=== PATIENT | male | born 1990 | race Two or more races ===

== ENCOUNTER 2018-06-09 21:25 | Emergency (ER) | payer OTHER ==
[2018-06-09] MEDS ORDERED: Diphtheria,Pertussis(Acell),Tetanus Vaccine 0.5 ML Syringe IM ONE (21:39)
--- NOTE | 2018-06-09 21:40 | EDM.PDOC ---
<Jacob Antoine - Last Filed: 06/09/18 22:03> ED HPI GENERAL MEDICAL PROBLEM - General Chief Complaint: Upper Extremity Injury/Pain Stated Complaint: PT HURT RT INDEX FINGER Time Seen by Provider: 06/09/18 21:37 Source of Information: Reports: Patient History Limitations: Reports: No Limitations - History of Present Illness INITIAL COMMENTS - FREE TEXT/NARRATIVE: HISTORY AND PHYSICAL: History of present illness: Patient is a 27-year-old male here with complaint of right pointer finger injury. 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 He is uncertain of his last tetanus. Review of systems: As per history of present illness and below otherwise all systems reviewed and negative. Past medical history: As per history of present illness and as reviewed below otherwise noncontributory. Surgical history: As per history of present illness and as reviewed below otherwise noncontributory. Social history: No reported history of drug or alcohol abuse. Family history: As per history of present illness and as reviewed below otherwise noncontributory. Physical exam: General: Patient sitting comfortably in no acute distress and nontoxic appearing HEENT: Atraumatic, normocephalic, pupils reactive, negative for conjunctival pallor or scleral icterus, mucous membranes moist, throat clear, neck supple, nontender, trachea midline. No meningeal signs. Lungs: Clear to auscultation, breath sounds equal bilaterally, chest nontender. Heart: S1S2, regular, negative for clicks, rubs, or overt murmur. Abdomen: Soft, nondistended, nontender. Negative for masses or hepatosplenomegaly. Negative for costovertebral tenderness. Pelvis: Stable nontender. Genitourinary: Deferred. Rectal: Deferred. Extremities: There is a 1.5cm laceration to the dorsal aspect of the right pointer finger just lateral to the DIP. negative for cords or calf pain. Neurovascular unremarkable. Neuro: Awake, alert, oriented. Cranial nerves II through XII unremarkable. Cerebellum unremarkable. Motor and sensory unremarkable throughout. Exam nonfocal. Notes: Diagnostics: x-ray right finger Therapeutics: tdap laceration repair Prescriptions: Impression: Right finger injury Laceration Plan: 1. Follow up with primary care provider 2. Return to ED as needed as discussed Definitive disposition and diagnosis as appropriate pending reevaluation and review of above. Right Finger-Index Pain Score (Numeric/FACES): 10 - Related Data Allergies Allergy/AdvReac Type Severity Reaction Status Date / Time No Known Allergies Allergy Verified 06/09/18 21:32 Home Meds: Home Meds . [No Known Home Meds] 06/09/18 [History] Past Medical History - Past Health History Medical/Surgical History: Denies Medical/Surgical History HEENT History: Reports: None Cardiovascular History: Reports: None Respiratory History: Reports: None Gastrointestinal History: Reports: None Genitourinary History: Reports: None Musculoskeletal History: Reports: None Neurological History: Reports: None Psychiatric History: Reports: None Endocrine/Metabolic History: Reports: None Hematologic History: Reports: None Oncologic (Cancer) History: Reports: None Dermatologic History: Reports: None - Infectious Disease History Infectious Disease History: Reports: None - Past Surgical History Head Surgeries/Procedures: Reports: None Male Surgical History: Reports: None Social & Family History - Family History Family Medical History: Noncontributory - Tobacco Use Smoking Status *Q: Never Smoker Second Hand Smoke Exposure: No - Caffeine Use Caffeine Use: Reports: None - Recreational Drug Use Recreational Drug Use: No Review of Systems - Review of Systems Review Of Systems: ROS reveals no pertinent complaints other than HPI. ED EXAM, GENERAL - Physical Exam Exam: See Below (See dictation) Course - Vital Signs Last Recorded V/S: Last Vital Signs Temp 36.7 C 06/09/18 21:30 Pulse 75 06/09/18 21:30 Resp 18 06/09/18 21:30 BP 137/92 H 06/09/18 21:30 Pulse Ox 98 06/09/18 21:30 - Orders/Labs/Meds Orders: Active Orders 24 hr Category Date Time Status Vaccines to be Administered [RC] PER UNIT ROUTINE Care 06/09/18 21:39 Active Meds: Medications Discontinued Medications Generic Name Dose Route Start Last Admin Trade Name Freq PRN Reason Stop Dose Admin Diphtheria/Tetanus/Acell Pertussis 0.5 ml 06/09/18 21:39 06/09/18 21:45 Adacel IM 06/09/18 21:40 0.5 ml .ONCE ONE Administration Lidocaine HCl 5 ml 06/09/18 21:36 06/09/18 21:45 Xylocaine-Mpf 1% INJECT 06/09/18 21:37 5 ml ONETIME ONE Administration Departure - Departure Time of Disposition: 22:05 Disposition: Home, Self-Care 01 Condition: Good Clinical Impression: Finger injury, Laceration - Discharge Information Forms: ED Department Discharge Additional Instructions: The following information is given to patients seen in the emergency department who are being discharged to home. This information is to outline your options for follow-up care. We provide all patients seen in our emergency department with a follow-up referral. The need for follow-up, as well as the timing and circumstances, are variable depending upon the specifics of your emergency department visit. If you don't have a primary care physician on staff, we will provide you with a referral. We always advise you to contact your personal physician following an emergency department visit to inform them of the circumstance of the visit and for follow-up with them and/or the need for any referrals to a consulting specialist. The emergency department will also refer you to a specialist when appropriate. This referral assures that you have the opportunity for follow-up care with a specialist. All of these measure are taken in an effort to provide you with optimal care, which includes your follow-up. Under all circumstances we always encourage you to contact your private physician who remains a resource for coordinating your care. When calling for follow-up care, please make the office aware that this follow-up is from your recent emergency room visit. If for any reason you are refused follow-up, please contact the [facility] Emergency Department at and asked to speak to the emergency department charge nurse. [facility] [address] [place] [address] [id number] [address] [address] 1. Follow up with primary care provider 2. Return to ED as needed as discussed <Wei Rogers - Last Filed: 06/09/18 23:15> Course - Vital Signs Text/Narrative:: Patient's wound was prepped and draped in a sterile manner and anesthetized 1% lidocaine and closed with 5-0 absorbable suture
--- NOTE | 2018-06-09 22:02 | CR ---
INDICATION: Pain following being slammed in a door. COMPARISON: None available. FINDINGS: The left 2nd finger was examined with PA, lateral and oblique views for a total of three views. There is no sign of fracture or dislocation. There is no sign of radiopaque foreign body. No significant degenerative changes are seen. IMPRESSION: Normal left 2nd finger. Dictated by Patrice Granados MD @ Jun 09 2018 9:58PM Signed by Dr. Patrice Granados @ Jun 09 2018 10:01PM
[2018-06-09 23:32] VITALS: BP 140/87
--- NOTE | 2018-06-10 16:00 | CR ---
INDICATION: Laceration . Technique: Two-view study right index finger. FINDINGS: No evidence of fracture or dislocation. No bone or soft tissue abnormalities. IMPRESSION: Negative radiographic examination of the right index finger. Dictated by Natasha Kirby MD @ Jun 10 2018 3:55PM Signed by Dr. Natasha Kirby @ Jun 10 2018 3:58PM
--- NOTE | 2018-06-10 16:02 | CR ---
INDICATION: Index finger injury. TECHNIQUE: Three views of the index finger labeled left? on the images. COMPARISON : None. FINDINGS : No fracture or subluxation. Apparent laceration along the dorsal-ulnar aspect of the distal finger. IMPRESSION : 1. Unremarkable except for apparent dorsal-ulnar distal index finger laceration. 2. Images labeled as left? index finger. Dictated by Shankar Hodges MD @ Jun 10 2018 3:56PM Signed by Dr. Shankar Hodges @ Jun 10 2018 4:00PM
== END 2018-06-09 23:25 | disposition home or self-care (01) ==
LOC: MW.ED 21:25
DX: S61.210A Laceration without foreign body of right index finger without damage to nail, initial encounter (principal); Z23 Encounter for immunization; W22.8XXA Striking against or struck by other objects, initial encounter
CPT/HCPCS: 12001; 73120-26-RT; 73120-RT; 73140-26-F1; 73140-26-F6; 73140-F1; 73140-F6; 90471; 90715; 99282; 99283-25

== ENCOUNTER 2018-07-20 04:28 | Emergency (ER) | payer SELFPAY ==
--- NOTE | 2018-07-20 04:50 | EDM.PDOC ---
ED HPI GENERAL MEDICAL PROBLEM - General Chief Complaint: General Stated Complaint: PERSISTENT COUGH Time Seen by Provider: 07/20/18 04:33 - History of Present Illness INITIAL COMMENTS - FREE TEXT/NARRATIVE: HISTORY AND PHYSICAL: History of present illness: The patient is a healthy 28-year-old male with no cardiac or pulmonary history and who presents with 4 days of hacking cough runny nose congestion sore throat and feverish feelings. The patient did not get his flu shot this year and does not smoke and is not around people who smoke tobacco. Patient says that he sometimes coughs so hard that causes him to vomit and intermittently he will have vomiting without coughing but not consistently. He has been pushing hydration and using vzvs-srp-vksrxhy meds such as Robitussin and Mucinex but says it is not improving and she came for evaluation. He has no abdominal pain no shortness of breath or chest pain. He says the cough in the morning is productive but through the day it is very dry. Review of systems: As per history of present illness and below otherwise all systems reviewed and negative. Past medical history: As per history of present illness and as reviewed below otherwise noncontributory. Surgical history: As per history of present illness and as reviewed below otherwise noncontributory. Social history: No reported history of drug or alcohol abuse. Family history: As per history of present illness and as reviewed below otherwise noncontributory. Physical exam: General: Well-developed well-nourished man who is nontoxic and vital signs are noted by me. He has nasal quality to voice but is not breathless HEENT: Atraumatic, normocephalic, pupils reactive, negative for conjunctival pallor or scleral icterus, mucous membranes moist, throat clear of exudates but there is some oropharyngeal erythema, there is no cervical adenopathy or nuchal rigidity,, neck supple, nontender, trachea midline. Lungs: Clear to auscultation, breath sounds equal bilaterally, chest nontender. No wheezing stridor Stridor or work of breathing Heart: S1S2, regular rate and rhythm no overt murmurs Abdomen: Soft, nondistended, nontender. NABS Pelvis: Deferred Genitourinary: Deferred. Rectal: Deferred. Extremities: Atraumatic, full range of motion Neurovascular unremarkable. Neuro: Awake, alert, oriented. Cranial nerves II through XII unremarkable. Cerebellum unremarkable. Motor and sensory unremarkable throughout. Exam nonfocal. Diagnostics: Influenza rapid strep chest x-ray Therapeutics: spacer Impression: Viral URI with cough Definitive disposition and diagnosis as appropriate pending reevaluation and review of above. Treatments MANUAL TESTER: Reports: Acetaminophen, Other (see below) Other Treatments MANUAL TESTER: mucinex - Related Data Allergies Allergy/AdvReac Type Severity Reaction Status Date / Time No Known Allergies Allergy Verified 07/20/18 04:36 Home Meds: Home Meds . [No Known Home Meds] 06/09/18 [History] Past Medical History - Past Health History Medical/Surgical History: Denies Medical/Surgical History HEENT History: Reports: None Cardiovascular History: Reports: None Respiratory History: Reports: None Gastrointestinal History: Reports: None Genitourinary History: Reports: None Musculoskeletal History: Reports: None Neurological History: Reports: None Psychiatric History: Reports: None Endocrine/Metabolic History: Reports: None Hematologic History: Reports: None Oncologic (Cancer) History: Reports: None Dermatologic History: Reports: None - Infectious Disease History Infectious Disease History: Reports: None - Past Surgical History Head Surgeries/Procedures: Reports: None Male Surgical History: Reports: None Social & Family History - Family History Family Medical History: Noncontributory - Tobacco Use Smoking Status *Q: Never Smoker - Caffeine Use Caffeine Use: Reports: None - Recreational Drug Use Recreational Drug Use: No ED ROS GENERAL - Review of Systems Review Of Systems: ROS reveals no pertinent complaints other than HPI. ED EXAM, GENERAL - Physical Exam Exam: See Below (see dictation) Course - Vital Signs Last Recorded V/S: Last Vital Signs Temp 36.4 C 07/20/18 04:30 Pulse 92 07/20/18 04:30 Resp 18 07/20/18 04:30 BP 138/93 H 07/20/18 04:30 Pulse Ox 96 07/20/18 04:30 - Orders/Labs/Meds Orders: Active Orders 24 hr Category Date Time Status CULTURE STREP A CONFIRMATION [] Stat Lab 07/20/18 04:45 Results STREP SCRN A RAPID W CULT CONF [] Stat Lab 07/20/18 04:45 Results Departure - Departure Time of Disposition: 05:19 Disposition: Home, Self-Care 01 Condition: Good Clinical Impression: Viral URI with cough, Bronchitis - Discharge Information Referrals: PCP,None [Primary Care Provider] - Forms: ED Department Discharge Additional Instructions: The following information is given to patients seen in the emergency department who are being discharged to home. This information is to outline your options for follow-up care. We provide all patients seen in our emergency department with a follow-up referral. The need for follow-up, as well as the timing and circumstances, are variable depending upon the specifics of your emergency department visit. If you don't have a primary care physician on staff, we will provide you with a referral. We always advise you to contact your personal physician following an emergency department visit to inform them of the circumstance of the visit and for follow-up with them and/or the need for any referrals to a consulting specialist. The emergency department will also refer you to a specialist when appropriate. This referral assures that you have the opportunity for followup care with a specialist. All of these measure are taken in an effort to provide you with optimal care, which includes your followup. Under all circumstances we always encourage you to contact your private physician who remains a resource for coordinating your care. When calling for followup care, please make the office aware that this follow-up is from your recent emergency room visit. If for any reason you are refused follow-up, please contact the [facility] emergency department at and ask to speak to the emergency department charge nurse. [facility] Primary care- Internal Medicine and Family [address] [address] Push hydration and rest as much as possible and schedule a follow-up in our clinic using resources given to above for further care and evaluation and return to ER as needed and as discussed. Please use all medications as prescribed using albuterol with spacer given. You have been given albuterol, a Medrol Dosepak, and Phenergan with codeine from [facility] - My Orders Last 24 Hours: My Active Orders 07/20/18 04:45 CULTURE STREP A CONFIRMATION [RM] Stat STREP SCRN A RAPID W CULT CONF [] Stat - Assessment/Plan Last 24 Hours: My Active Orders 07/20/18 04:45 CULTURE STREP A CONFIRMATION [RM] Stat STREP SCRN A RAPID W CULT CONF [] Stat
--- NOTE | 2018-07-20 05:12 | CR ---
INDICATION: 2 images. shortness of breath. prior sent TECHNIQUE: Chest 2 views. COMPARISON: 04/14/14 FINDINGS: Cardiovascular and mediastinum: Heart size and vasculature are normal in caliber and appearance. Mediastinum is within normal limits. Lungs and pleural spaces: Lungs are clear. No sign of infiltrate or mass. No sign of pleural effusion. No pneumothorax. Bones and soft tissues: No significant findings. IMPRESSION: Unremarkable chest. Dictated by: Roel Merrill MD @ 07/20/2018 05:11:27 (Electronically Signed)
[2018-07-20 05:31] VITALS: BP 126/82
== END 2018-07-20 05:30 | disposition home or self-care (01) ==
LOC: MW.ED 04:28
DX: J40 Bronchitis, not specified as acute or chronic (principal); J06.9 Acute upper respiratory infection, unspecified
CPT/HCPCS: 71046; 71046-26; 87081; 87804; 87880-QW; 99282; 99283-25